=== PATIENT | female | born 1960 | race Caucasian/White ===

== ENCOUNTER 2021-06-19 13:59 | Emergency (ER) | payer OTHER, SELFPAY ==
[2021-06-19 14:01] VITALS: BP 173/98; PULSE 82; RESP 15; TEMP 36.2; O2SAT 100; BMI 21.7
--- NOTE | 2021-06-19 14:03 | EKG12_ITS ---
Test Reason : CP Blood Pressure : / mmHG Vent. Rate : 064 BPM Atrial Rate : 064 BPM P-R Int : 154 ms QRS Dur : 090 ms QT Int : 422 ms P-R-T Axes : 068 055 062 degrees QTc Int : 435 ms Normal sinus rhythm Normal ECG Confirmed by HUSSIAN DUMONT, JULIANO ([id number]), editorial director ASHLEY ANGELES ([id number]) on 06/21/2021 10:41:10 AM Referred By: EDIN Confirmed By:JULIANO NIXON MD
--- NOTE | 2021-06-19 14:30 | RAD_ITS ---
STUDY: X-RAY CHEST REASON FOR EXAM: Female, 60 years old. CP TECHNIQUE: Single AP portable view of the chest. COMPARISON: None. FINDINGS: Surgical clips are seen in the right axillary region. Hyperinflation. The lungs are clear. There is no demonstrated pleural abnormality. Normal size heart. Normal mediastinum and gurvinder. Normal visualized pulmonary arteries. There is atherosclerotic tortuosity of the aortic arch and descending thoracic aorta. There are diffuse degenerative changes of the visualized thoracic spine. Normal visualized ribs, clavicles, and shoulders. There is no demonstrated abnormality of the visualized soft tissue structures of the upper abdomen. RAD/Chest 1 View IMPRESSION: Hyperinflation. The lungs are clear. Electronically Signed: Renan Rhodes MD at 14:39 EST , Service support ,
--- NOTE | 2021-06-19 15:30 | EDS_ITS ---
HPI History of Present Illness Chief Complaint: Chest Pain Informant: patient Narrative Narrative: Patient presents with lower sternal chest pain. She states it started back in the end of March when she was recovering from Covid. But it slowly gotten more. For the last 2 weeks will sometimes last all day long. Is just sore area. Nothing really makes it better or worse. It does tend to be more commonly present in the morning but not only. No specific dyspepsia. She does not get short of breath nausea vomiting or diaphoretic with it at all. It is not pleuritic. She has never been short of breath. Patient used to be a significant runner after she quit smoking. After Takotsubo she cut back but she still runs. She ran the [place] in [facility] and had no symptoms with exertion at all. This is never been exertional. Past medical history includes Takotsubo. She had a heart catheterization about 5 years ago that showed 30% blockage in a single vessel but all the others were completely clear. No history of high blood pressure, high cholesterol, diabetes. Medications include low-dose of metoprolol and hormone suppressive therapy for remote history of breast cancer. No known allergies No recent surgeries. Lives with , quit smoking 15 years ago. [facility] Medical History (Updated 06/19/21 @ 17:[address] Jack Coronado MD) Breast CA Takotsubo syndrome Allergy/AdvReac Type Severity Reaction Status Date / Time No Known Allergies Allergy Verified 06/19/21 14:03 Social History Smoking Status: Former smoker ROS ROS ED Constitutional Constitutional ED: Denies chills or fever(s) Eyes Eyes: Denies change in vision ENT ENT ED: Denies sore throat Cardiovascular Cardiovascular: Reports chest pain; Denies orthopnea, palpitations or paroxysmal nocturnal dyspnea Respiratory/Chest Respiratory/Chest: Denies cough, dyspnea, dyspnea on exertion, orthopnea, paroxysmal nocturnal dyspnea or sputum Gastrointestinal Gastrointestinal: Denies abdominal pain, nausea or vomiting Musculoskeletal Musculoskeletal: Reports other Details: Patient has some chronic neck pain but is no different than normal for her. It is very mild. It is managed well with chiropractic therapy. ; Denies back pain Integumentary Denies Abrasions or rash Neurologic Neurologic: Denies headache(s), paresthesias or weakness Psychiatric Psychiatric: Reports anxiety Endocrine Endocrinology: Denies polydipsia or polyuria Hematologic/Lymphatic Hematologic/Lymphatic: Denies easy bleeding or easy bruising Allergic/Immunologic Allergic/Immunologic ED: Denies urticaria EXAM Physical Exam Const Vital Signs: 06/19/21 14:01 06/19/21 15:52 06/19/21 15:57 Temperature 97.2 F L Temperature Source Temporal Pulse Rate 82 64 Respiratory Rate 15 15 Respiratory Effort Normal Non-Labored Blood Pressure 173/98 H 193/93 H Blood Pressure Mean 123 126 Pulse Ox 100 100 Oxygen Delivery Method Room Air Room Air 06/19/21 16:00 Temperature Temperature Source Pulse Rate 58 L Respiratory Rate 16 Respiratory Effort Blood Pressure 160/85 H Blood Pressure Mean 110 Pulse Ox 97 Oxygen Delivery Method Room Air Positive well nourished and well developed; Negative for obese General Appearance ED: well developed and NAD Nutritional Appearance: Negative for obese HEENT Reports moist mucous membranes Eyes General Eye ED: Negative for pale conjunctiva or scleral icterus Neck no JVD General: Negative for tenderness Resp normal respiratory effort and clear to auscultation bilaterally Resp Narrative: No pain with a deep breath. Effort and Inspection: Negative for respiratory distress Auscultation: Negative for rales, rhonchi or wheezes Cardio regular rate and regular rhythm Back/Spine no CVA tenderness Extremity General Extremety ED: Negative for edema or tenderness General Extremity: Negative for edema Neuro Sensorium / Orientation: awake and alert Psych mental status grossly normal Psych Narrative: Patient does get slightly tearful when she talks about this. She states it scares her. She does states she has been having some more anxiety issues recently but trying to control them well. Mood & Affect: tearful Skin no rashes or lesions noted Heart Score History: Slightly/Non-Suspicious ECG: Normal Age: >45 - <65 years Risk Factors: No Risk Factors Troponin: </= Normal Limit Score: 1 MDM MDM MDM Narrative Medical decision making narrative: Patient's EKG and chest x-ray are unremarkable. CBC, D-dimer, troponin and electrolytes show no marked abnormalities. She has a minimal decrease of potassium. This will self correct with diet. Patient still needs to follow-up with her physician. She has a heart score of 1 as she really has no significant risk for heart disease. I recommend she try an [id number] proton pump inhibitor to see if this helps symptoms. It might not resolve it but it might give us further information. We discussed reasons to return. Lab Data Attestation: I reviewed the patient's lab results. Labs: Laboratory Results - last 24 hr 06/19/21 06/19/21 06/19/21 15:40 15:40 15:40 WBC 6.0 RBC 4.64 Hgb 14.2 Hct 43.3 MCV 93.3 MCH 30.6 MCHC 32.8 RDW Std Deviation 45.6 H RDW Coeff of Darren 13.4 Plt Count 322 MPV 10.5 Immature Gran % (Auto) 0.200 Neut % (Auto) 62.6 Lymph % (Auto) 28.1 [place] % (Auto) 7.6 Eos % (Auto) 0.7 Baso % (Auto) 0.8 Absolute Neuts (auto) 3.8 Absolute Lymphs (auto) 1.69 Nucleated RBC % 0 D-Dimer Quant (PE/DVT) 0.28 Sodium 142 Potassium 3.4 L Chloride 106 Carbon Dioxide 28.0 Anion Gap 8 BUN 10 Creatinine 0.72 Estim Creat Clear Calc 75.84 Est GFR (MDRD) Af Amer 105 Est GFR (MDRD) Non-Af 87 BUN/Creatinine Ratio 13.9 Glucose 97 Calcium 9.7 Troponin I High Sens 7 Radiography Diagnostic Testing: Clinical Impression(s) from Imaging Studies Chest X-Ray 06/19/21 14:30 IMPRESSION: Hyperinflation. The lungs are clear. Electronically Signed: Renan Rhodes MD at 14:39 EST , Service support , EKG Initial EKG: Comments: EKG done for chest pain read by me shows a normal sinus rhythm with a rate of 64. No ectopy. No acute ST elevation or depression. MN interval, QRS duration and QTc normal. Discharge Plan Triage Chief Complaint: Chest Pain ED Provider: Jack Coronado Dx/Rx/DC Orders Clinical Impression: Chest pain Instructions: ED Chest Pain, Uncertain Cause Referrals: RIMMA JACOBSON [Other] - As soon as possible Disposition Disposition: Home, Self Care
[2021-06-19 15:52] VITALS: BP 193/93; PULSE 64; RESP 15; O2SAT 100
[2021-06-19 15:54] LABS: Absolute Lymphocyte Count 1.69 X10^3/uL (0.83-4.51); Absolute Neutrophil Count 3.8 X10^3/uL (2.0-7.7); Basophil# 0.05 X10^3/uL; Basophil% 0.8 % (0-1); Eosinophil# 0.04 X10^3/uL; Eosinophils% 0.7 % (0-5); Hematocrit 43.3 % (37-47); Hemoglobin 14.2 g/dL (12.0-15.0); Lymphocyte # 1.69 X10^3/ul (0.83-4.51); Lymphocyte % 28.1 % (19-41); Mean Corp Hgb Conc 32.8 g/dL (32-36); Mean Corpuscular Hgb 30.6 pg (27.0-32.0); Mean Corpuscular Volume 93.3 fL (81-99); Mean Platelet Vol. 10.5 fl (6.2-12.0); Monocyte# 0.46 X10^3/uL; Monocyte% 7.6 % (0-10); NRBC Flagged by Analyzer 0 % (0-5); Neutrophil # 3.77 X10^3/uL (2.7-7.7); Neutrophil % 62.6 % (47-70); Platelet Count 322 K/mm3 (150-450); RBC Distribution Width CV 13.4 % (11.6-14.6); RBC Distribution Width SD 45.6 fl (35.1-43.9); Red Blood Count 4.64 M/mm3 (4.2-5.4)
[2021-06-19 16:00] VITALS: BP 160/85; PULSE 58; RESP 16; O2SAT 97
[2021-06-19 16:15] LABS: Anion Gap 8 (5-15); BUN 10 mg/dL (7-18); BUN/Creat Ratio 13.9 RATIO (10-20); Calcium,Total 9.7 mg/dL (8.5-10.1); Chloride 106 mmol/L (98-107); Creatinine, Serum 0.72 mg/dL (0.55-1.02); EST Glomerular Filtration Rate 87 mL/min (>60); Est Glom Filt Rate - Afr Amer 105 mL/min (>60); Estimated Creatinine Clearance 75.84 ml/min; Glucose 97 mg/dL (74-106); Potassium 3.4 mmol/L (3.5-5.1); Sodium Level 142 mmol/L (136-145); Troponin-I HS 7 pg/mL (3.0-54.0)
[2021-06-19 16:19] LABS: D-Dimer Quantitative (DVT/PE) 0.28 FEU/ug/m (0.27-0.49)
[2021-06-19 17:23] VITALS: BP 123/74; PULSE 73; RESP 15; O2SAT 98
== END 2021-06-19 17:24 | disposition home or self-care (01) ==
PROVIDERS: Emergency Provider Emergency Medicine
DX: R07.9 Chest pain, unspecified (principal); Z87.891 Personal history of nicotine dependence; Z85.3 Personal history of malignant neoplasm of breast
CPT/HCPCS: 71045; 80048; 84484; 85025; 85379; 93005; 99285; A4216